=== PATIENT | female | born 2000 ===

== ENCOUNTER 2018-02-18 13:12 | Emergency (ER) | payer MEDICAID, OTHER ==
[2018-02-18 13:14] VITALS: BMI 20.5
--- NOTE | 2018-02-18 14:02 | ED PDOC ---
Arrival/HPI - General Chief Complaint: Female Genitourinary Time Seen by Provider: 02/18/18 13:26 Historian: Patient - History of Present Illness Narrative History of Present Illness (Text): 02/18/18 13:54 A 17 year old female, with currently 22 weeks (LMP mid-September ), presents to the emergency department complaining of constant abdominal pain since last night. Patient describes the pain similar to giving labor however she is not experiencing contractions at this time. She believed it was gas but felt no relief after passing gas. Patient reports she has not been seen by an obgyn due to no insurance. Patient denies any fever, chills, nausea, vomiting, diarrhea, chest pain, shortness of breath or any other complaints. Time/Duration: Other (last night) Symptom Course: Unchanged Quality: Other Context: Home Past Medical History - Provider Review Nursing Documentation Reviewed: Yes - Psychiatric Hx Psychophysiologic Disorder: No Hx Substance Use: No - Suicidal Assessment Feels Threatened In Home Enviroment: No Family/Social History - Physician Review Nursing Documentation Reviewed: Yes Family/Social History: No Known Family HX Smoking Status: Smoker (1 pack every 2 weeks) however stopped during her Hx Alcohol Use: No Hx Substance Use: No Hx Substance Use Treatment: No Allergies/Home Meds Allergies/Adverse Reactions: Allergies No Known Allergies Allergy (Verified 02/18/18 13:19) Review of Systems - Physician Review All systems were reviewed & negative as marked: Yes - Review of Systems Constitutional: absent: Fevers, Night Sweats Respiratory: absent: SOB Cardiovascular: absent: Chest Pain Gastrointestinal: Abdominal Pain. absent: Diarrhea, Nausea, Vomiting Physical Exam Vital Signs Reviewed: Yes Vital Signs Temp Pulse Resp BP Pulse Ox 02/18/18 13:19 97.5 F L 97 H 18 114/63 99 Temperature: Afebrile Blood Pressure: Normal Pulse: Tachycardic Respiratory Rate: Normal Appearance: Positive for: Well-Appearing, Non-Toxic, Uncomfortable Pain Distress: Mild Mental Status: Positive for: Alert and Oriented X 3 - Systems Exam Head: Present: Atraumatic, Normocephalic Pupils: Present: PERRL Extroacular Muscles: Present: EOMI Conjunctiva: Present: Normal Mouth: Present: Moist Mucous Membranes Respiratory/Chest: Present: Clear to Auscultation, Good Air Exchange. No: Respiratory Distress, Accessory Muscle Use Cardiovascular: Present: Regular Rate and Rhythm, Normal S1, S2. No: Murmurs Abdomen: Present: Other (Gravid abdomen). No: Tenderness, Distention, Peritoneal Signs Upper Extremity: Present: Normal Inspection. No: Cyanosis, Edema Lower Extremity: Present: Normal Inspection. No: Edema Neurological: Present: GCS=15, CN II-XII Intact, Speech Normal Skin: Present: Warm, Dry, Normal Color. No: Rashes Psychiatric: Present: Alert, Oriented x 3, Normal Insight, Normal Concentration Medical Decision Making ED Course and Treatment: 02/18/18 13:54 Impression: A 17 year old female 22 weeks with abdominal pain Plan: -- age ultrasound -- Labs -- Urinalysis -- Reassess and disposition Progress Notes: Report Date : 02/18/2018 15:54:37 PROCEDURE: age ultrasound Dictator : Sandra Giles IMPRESSION: Single intrauterine gestation -whose ultrasound biometric parameters are concordant with an approximately 20 week 2 day 1 week 3 day gestation. . This is concordant with the gestational age by LMP of. cardiac activity present and unremarkable. presentation cephalic -. No previa - Lab Interpretations Lab Results: 02/18/18 15:07 02/18/18 15:07 Lab Results 02/18/18 16:53: Urine Color Yellow, Urine Appearance Sl cloudy, Urine pH 6.5, Ur Specific Lorane 1.020, Urine Protein Negative, Urine Glucose (UA) Negative, Urine Ketones Negative, Urine Blood Small H, Urine Nitrate Negative, Urine Bilirubin Negative, Urine Urobilinogen 0.2, Ur Leukocyte Esterase Large H, Urine RBC 2 - 5, Urine WBC 25 - 30, Ur Epithelial Cells 10 - 12, Urine Bacteria Large, Urine Other Trichomonas 02/18/18 16:15: Blood Type Confirm O POSITIVE 02/18/18 15:07: Blood Type O POSITIVE, Antibody Screen Negative, BBK History Checked No verified bt 02/18/18 15:07: Sodium 136, Potassium 4.0, Chloride 104, Carbon Dioxide 25, Anion Gap 10, BUN 8, Creatinine 0.5 L, Est GFR ( Amer) > 60, Est GFR (Non -Af Amer) > 60, Random Glucose 76, Calcium 9.6, Total Bilirubin 0.2, AST 24, ALT 27, Alkaline Phosphatase 82, Total Protein 7.5, Albumin 3.8, Globulin 3.7, Albumin/Globulin Ratio 1.0 L 02/18/18 15:07: PT 11.4, INR 1.00 02/18/18 15:07: WBC 14.2 H, RBC 3.65, Hgb 11.8 L, Hct 34.1 L, MCV 93.4, MCH 32.3 , MCHC 34.6, RDW 12.4, Plt Count 340, MPV 9.1, Gran % 84.5 H, Lymph % (Auto) 10.6 L, Hood % (Auto) 4.2, Eos % (Auto) 0.6 L, Baso % (Auto) 0.1, Gran # 11.96 H , Lymph # (Auto) 1.5, Hood # (Auto) 0.6, Eos # (Auto) 0.1, Baso # (Auto) 0.02 I have reviewed the lab results: Yes - RAD Interpretation Radiology Orders: 02/18/18 13:31 AGE [US] Stat - Medication Orders Current Medication Orders: Ceftriaxone Sodium (Rocephin 2 Gm Ivpb) 2 gm in 100 mls @ 100 mls/hr IVPB STAT STA PRN Reason: Protocol Stop: 02/18/18 19:01 Sodium Chloride (Sodium Chloride 0.9%) 2,000 mls @ 999 mls/hr IV .Q2H1M STA Stop: 02/18/18 20:02 - Scribe Statement The provider has reviewed the documentation as recorded by the Monseibmaldonado May Provider Scribe Attestation: All medical record entries made by the Scribe were at my direction and personally dictated by me. I have reviewed the chart and agree that the record accurately reflects my personal performance of the history, physical exam, medical decision making, and the department course for this patient. I have also personally directed, reviewed, and agree with the discharge instructions and disposition. Disposition/Present on Arrival - Present on Arrival Any Indicators Present on Arrival: No History of DVT/PE: No History of Uncontrolled Diabetes: No Urinary Catheter: No History of Decub. Ulcer: No History Surgical Site Infection Following: None - Disposition Have Diagnosis and Disposition been Completed?: Yes Diagnosis: , UTI (urinary tract infection), Trichomonas vaginalis (TV) infection Disposition: HOME/ ROUTINE Disposition Time: 18:22 Patient Plan: Discharge Patient Problems: Current Active Problems Problem Status Onset Acute Trichomonas vaginalis (TV) infection Acute UTI (urinary tract infection) Acute Condition: GOOD Discharge Instructions (ExitCare): Sexually-Transmitted Diseases (DC), Trichomoniasis (DC), - The Fifth Month, - The Sixth Month, - The Seventh Month, - The Eighth Month, - The Ninth Month, Urinary Tract Infections in Adults, Care, Avoiding Infections in , Alcohol and Drug Use in , Urinary Tract Infection, Adult (DC) Additional Instructions: Lalita- You absolutely need to get care as soon as possible. Because of these infections, and the fact that we can not treat the trichomonas means this is high risk. Return to us if any problems. The Keflex is for 10 full days, four times a day. Best- Dr. Aj Tai Referrals: Sumaya Bergeron MD [Primary Care Provider] - Follow up with primary Forms: [facility] (Slovenian), WORK NOTE, SCHOOL NOTE
[2018-02-18 15:20] LABS: BASO # 0.02 K/mm3 (0.0-2.0); BASO % 0.1 % (0.0-3.0); EOS # 0.1 (0.0-0.7); EOS % 0.6 % (1.5-5.0); GRAN # 11.96 (1.4-6.5); GRAN % 84.5 % (50.0-68.0); HEMOGLOBIN 11.8 g/dL (12.0-16.0); LYMPH # 1.5 (1.2-3.4); LYMPH % 10.6 % (22.0-35.0); MEAN CELL VOLUME 93.4 fl (80.0-105.0); MEAN CORPUSCULAR HEMOGLOBIN 32.3 pg (25.0-35.0); MEAN CORPUSCULAR HGB CONC 34.6 g/dl (31.0-37.0); MEAN PLATELET VOLUME 9.1 fl (7.0-11.0); MONO # 0.6 (0.1-0.6); MONO % 4.2 % (1.0-6.0); RBC 3.65 10^6/uL (3.5-6.1); RED CELL DISTRIBUTION WIDTH 12.4 % (11.5-14.5); WHITE BLOOD COUNT 14.2 10^3/ul (4.5-11.0)
[2018-02-18 15:28] LABS: ALBUMIN 3.8 g/dL (3.0-4.8); ALT/SGPT 27 U/L (7-56); AST/SGOT 24 U/L (14-36); BLOOD UREA NITROGEN 8 mg/dL (7-21); CALCIUM 9.6 mg/dL (8.4-10.5); GFR AFRICAN-AMERICAN > 60; GFR NON-AFRICAN AMERICAN > 60
[2018-02-18 15:32] LABS: PROTHROMBIN TIME 11.4 SECONDS (9.4-12.5)
--- NOTE | 2018-02-18 16:32 | US ---
PROCEDURE: HISTORY: age. LMP 09/30/2017. Estimated gestational age LMP is 20 weeks 1 day. . Abdominal pain. No bleeding COMPARISON: None TECHNIQUE: Transabdominal scanning of the maternal pelvis and a 2nd/ 3rd trimester with image documentation FINDINGS: Fetus: Single intrauterine gestation heart rate: Present at 150beats per minute presentation: Cephalic Placenta: Posterior and greater than 2 cm from the cervix.Without previa or abruption Amniotic fluid : Normal appearin cm anatomy: Grossly unremarkable biometrics: Gestational age by ultrasound: 20 weeks 2 days 1 week 3 days Etimated date of delivery 07/06/2018 Estimated weight: 349.98 g 50 2.50 g Maternal factors: Uterus: Unremarkable. No myometrial masses. Ovaries not visualized Cervix: 4.2 cm length closed Free fluid: None IMPRESSION: Single intrauterine gestation -whose ultrasound biometric parameters are concordant with an approximately 20 week 2 day 1 week 3 day gestation. . This is concordant with the gestational age by LMP of. cardiac activity present and unremarkable. presentation cephalic -. No previa
[2018-02-18 17:18] LABS: PH,URINE 6.5 (4.7-8.0); URINE BILIRUBIN NEGATIVE (NEGATIVE); URINE BLOOD SMALL (NEGATIVE); URINE GLUCOSE (UA) NEGATIVE (NEGATIVE); URINE LEUKOCYTE ESTERASE LARGE Leu/uL (NEGATIVE); URINE PROTEIN NEGATIVE mg/dL (<30 mg/dL); URINE UROBILINOGEN 0.2 E.U./dL (<1 E.U./dL)
[2018-02-18 17:22] LABS: URINE APPEARANCE SL CLOUDY (CLEAR); URINE COLOR YELLOW (YELLOW)
[2018-02-18 17:30] LABS: URINE BACTERIA LARGE (NEG); URINE WBC 25 - 30 /hpf (0-6)
[2018-02-18] MEDS ORDERED: cefTRIAXone 2 GM IN NS 2 GM/100 ML BAG IVPB STA (18:02)
[2018-02-18] MEDS ORDERED: Sodium Chloride 0.9% 2,000 ML IV STA (18:02)
[2018-02-18 20:10] VITALS: BP 115/82; PULSE 82; RESP 17; TEMP 98; O2SAT 100
== END 2018-02-18 20:10 | disposition home or self-care (01) ==
LOC: ED 13:12
DX: O23.42 Unspecified infection of urinary tract in pregnancy, second trimester (principal); A59.01 Trichomonal vulvovaginitis; Z3A.20 20 weeks gestation of pregnancy
CPT/HCPCS: 76815; 80053; 81001; 85025; 85610; 86850; 86900; 87086; 96365; 99284; J0696; J7040